=== PATIENT | female | born 1970 | race Caucasian/White ===

== ENCOUNTER → 2018-09-08 | Outpatient (CLI) | payer BC ==
[~2018-09-08] MED LIST: CATHETER FLUSH 10 ML SYR IV PRN; HOLD METFORMIN - RECEIVED CONTRAST 20 ML VIAL IV SCH; IOHEXOL 350 MG/ML 100 ML (OMNIPAQUE 350) VIAL IV ONE; NS 100 ML (IVPB) BAG IV ONE
--- NOTE | 2018-09-08 16:34 | Diagnostic Imaging Report ---
PROCEDURE: CT abdomen and pelvis with contrast. TECHNIQUE: Multiple contiguous axial images were obtained through the abdomen and pelvis after administration of intravenous contrast. Auto Exposure Controls were utilized during the CT exam to meet ALARA standards for radiation dose reduction. INDICATION: Right lower quadrant abdominal pain. FINDINGS: There is an approximately 0.8 cm in diameter nodule seen within the posterior left lower lobe. This is subpleural in location and is nonspecific. Low density is seen in the liver; however, there is no evidence of focal hepatic or splenic abnormality identified. There appears to be a small hiatal hernia. Gallbladder is contracted. There is no evidence of pancreatic, adrenal gland, or renal abnormality. No free fluid is seen within the abdomen or pelvis. The appendix has a normal appearance. There is no evidence of organized fluid collection to indicate abscess or hematoma. IMPRESSION: No definite acute abnormality is seen within the abdomen. In particular, there is no evidence of acute appendicitis. There is an approximately 0.8 cm subpleural nodule in the left lower lobe. This could be related to focal infiltrate. CT followup of the chest in 1-2 months would be useful to document stability or resolution of this finding as well as assess the remainder of the lung schwartz. Dictated by: Dictated on workstation # [id number]
== END ==
LOC: RAD 15:38
PROVIDERS: ATTEND Nurse Practitioner Family
DX: R10.31 Right lower quadrant pain (principal); R91.1 Solitary pulmonary nodule
CPT/HCPCS: 74177

== ENCOUNTER → 2018-09-16 | Outpatient (CLI) | payer BC ==
--- NOTE | 2018-09-16 08:51 | Diagnostic Imaging Report ---
PROCEDURE: US Gallbladder. TECHNIQUE: Multiple real-time grayscale images were obtained over the right upper quadrant in various projections. INDICATION: Right upper quadrant pain. The liver is normal in size at 14.5 cm. Liver is somewhat heterogeneous, likely owing to geographic fatty infiltration. No discrete liver mass is identified. Portal vein is patent and shows normal direction of flow. Gallbladder is without stones. There may be minimal sludge present. No wall thickening or biliary ductal dilatation is seen. The pancreas is obscured by bowel gas. Right kidney is unremarkable. No calculi or hydronephrosis is seen. There is no ascites. Impression: 1. Probable hepatic steatosis. 2. Minimal gallbladder sludge. No cholelithiasis or acute cholecystitis is detected. Dictated by: Dictated on workstation # [id number]
== END ==
LOC: RAD 07:46
PROVIDERS: ATTEND Nurse Practitioner Primary Care
DX: R10.11 Right upper quadrant pain (principal)
CPT/HCPCS: 76705

== ENCOUNTER → 2018-10-13 | Outpatient (CLI) | payer BC ==
[~2018-10-13] MED LIST changes: -HOLD METFORMIN - RECEIVED CONTRAST 20 ML VIAL IV SCH; -IOHEXOL 350 MG/ML 100 ML (OMNIPAQUE 350) VIAL IV ONE; -NS 100 ML (IVPB) BAG IV ONE
--- NOTE | 2018-10-13 14:27 | Diagnostic Imaging Report ---
CLINICAL INDICATION: Patient with right upper quadrant pain. COMPARISON: Right upper quadrant ultrasound dated 09/16/2018. PROCEDURE: The patient was administered 5.7 millicuries of technetium 99m Choletec. After 60 minutes of the images, one can of Ensure was drink followed by another 60 minutes of imaging. A nuclear medicine hepatobiliary scan with ejection fraction was performed. FINDINGS: There is prompt uptake and excretion of radiotracer by the liver. Activity is visible in the gallbladder by 20 minutes and the small bowel by 15 minutes. Ejection fraction of the gallbladder is calculated at 25% (normal >33%). The gallbladder visibly empties on the scans following the ingestion of Ensure. IMPRESSION: Abnormal hepatobiliary scan with low gallbladder ejection fraction of 25%. Considerations include gallbladder dysmotility or chronic cholecystitis. Dictated by: Dictated on workstation # [id number]
== END ==
LOC: CARD 11:42
PROVIDERS: ATTEND Nurse Practitioner Family
DX: R10.11 Right upper quadrant pain (principal)
CPT/HCPCS: 78227

== ENCOUNTER 2019-05-22 08:08 | Outpatient (RCR) | payer BC | END 2019-08-20 | disposition home or self-care (01) | LOC: CARD 08:08 | PROVIDERS: ATTEND Nurse Practitioner Family | DX: R00.2 Palpitations (principal) | CPT/HCPCS: 93225; 93226 ==

== ENCOUNTER → 2019-09-13 | Outpatient (CLI) | payer BC ==
[2019-09-13 15:06] VITALS: BP 137/68
--- NOTE | 2019-09-13 15:06 | Cardiology Stress Test Report ---
Stress Test Report Date of Procedure/Referring: Date of Procedure: September 13, 2019 Physician/Services Referral: IFTO Brewer PCP Dyana Nichole Admitting Physician Ephraim Arzate Indications: Palpitation Baseline Heart Rate: 85 Baseline Blood Pressure: Blood Pressure Systolic: 137 Blood Pressure Diastolic: 68 Baseline EKG: Baseline EKG: Normal sinus rhythm Summary/Conclusion: Summary: In summary, the patient started exercising with a baseline heart rate, blood pressure and EKG mentioned above Patient was able to exercise for a total of 8 minutes on Shamir protocol, 9.7 METs Maximum heart rate 166 Maximum blood pressure 267/57 Stress EKG Minimal nondiagnostic changes Recovery EKG Return to baseline Conclusion: 1. Good exercise tolerance for a total of 8 minutes on Shamir protocol, 9.7 METs, achieving 95 percent of maximum expected heart rate 2. Minimal nondiagnostic EKG changes with exercise returned to baseline during recovery 3. No arrhythmia was noted NIRMAL STEVENS MD September 13, 2019 15:06
== END ==
LOC: CARD 12:23
PROVIDERS: ATTEND Physician Assistant
DX: R00.2 Palpitations (principal); R06.09 Other forms of dyspnea
CPT/HCPCS: 93017; 93306

== ENCOUNTER 2021-03-28 11:20 | Outpatient (CLI) | payer BC ==
[2021-03-28 12:10] VITALS: BP 119/75
[2021-03-28 14:11] VITALS: BP 113/68
[2021-03-28 15:21] VITALS: BP 119/66
== END 2021-03-28 12:00 | disposition still patient (30) ==
LOC: INFUSION 11:20
PROVIDERS: ATTEND Physician Assistant
DX: U07.1 COVID-19 (principal)

== ENCOUNTER 2021-03-28 11:50 | Emergency (ER) | payer BC ==
[~2021-03-28] VITALS: Ht 167 cm; Wt 80.0 kg
--- NOTE | 2021-03-28 12:43 | ED Syncope ---
General Chief Complaint: Neurological Problems Stated Complaint: SEIZURE Nursing Triage Note: THE PT CAME OVER FROM THE INFUSION DPT. PER NURSING STATED THAT THE PT HAD A SEIZURE TYPE EVENT WHILE STARTING HER IV. THE PT HAS NO HX OF SEIZURES. THE PT IS W/D PINK. NO DISTRESS IS SEEN ON ARRIVAL. THE PT IS VIRBLEY RESPONSIVE. Source of Information: Patient Exam Limitations: No Limitations History of Present Illness Date Seen by Provider: Mar 28, 2021 Time Seen by Provider: 12:25 Initial Comments Patient is a 50-year-old female who presents to the emergency department today with a chief complaint of reported syncope. Patient states "the last thing I remember is her putting the needle in my arm and stating I think I am going to pass out". Patient is Covid positive, diagnosed about 10 days ago at her school. She states "I do not feel good". Reportedly the patient had some shaking with her syncopal episode. She states she has had previous syncopal episode many years ago. She does take antidepressants as well as metoprolol for rapid heartbeat. She complains of headache, nausea and diarrhea. She has been taking medications for her symptoms. No chest pain, no abdominal pain. No swelling in her legs. Is awake alert and oriented on my evaluation. All other review of systems reviewed and negative except as stated. Timing/Prior Episodes: Remote History Symptoms Prior to Episode: Lightheadedness, Nausea Precipitating Factors: Sitting Loss of Consciousness: Brief (Seconds) Current Symptoms: Back to Normal (just feels "sick") Allergies and Home Medications Allergies Coded Allergies: levofloxacin (Verified Allergy, Intermediate, Rash, 03/28/21) sulfamethoxazole (Verified Allergy, Intermediate, Rash, 03/28/21) trimethoprim (Verified Allergy, Intermediate, Rash, 03/28/21) Patient Home Medication List Home Medication List Reviewed: Yes Review of Systems Constitutional: see HPI EENTM: no symptoms reported Respiratory: no symptoms reported Cardiovascular: no symptoms reported Gastrointestinal: diarrhea, nausea Genitourinary: no symptoms reported Musculoskeletal: muscle cramps Skin: no symptoms reported Psychiatric/Neurological: Other (syncope) All Other Systems Reviewed Negative Unless Noted: Yes Physical Exam Vital Signs Vital Signs - First Documented 03/28/21 12:06 Temp 37.3 Pulse 77 Resp 16 B/P (MAP) 113/70 (84) Capillary Refill : Less Than 3 Seconds Height, Weight, BMI Height: '" Weight: lbs. oz. kg; 28.00 BMI Method: General Appearance: No Apparent Distress, WD/WN HEENT: PERRL/EOMI, Other (dry oral mucosa) Neck: Normal Inspection Cardiovascular: Regular Rate, Rhythm, Normal Peripheral Pulses Respiratory: Lungs Clear, Normal Breath Sounds, No Accessory Muscle Use, No Respiratory Distress Gastrointestinal: Normal Bowel Sounds, Non Tender, Soft Extremities: Normal Inspection, Normal Range of Motion, No Calf Tenderness, No Pedal Edema Neurologic/Psychiatric: Alert, Oriented x3, No Motor/Sensory Deficits, Normal Mood/Affect, research microbiologist II-XII Norm as Tested Cranial Nerves: Normal Hearing, Normal Speech, PERRL Motor/Sensory: No Motor Deficit, No Sensory Deficit Skin: Normal Color, Warm/Dry Progress/Results/Core Measures Results/Orders Lab Results Laboratory Tests Test 03/28/21 12:00 03/28/21 13:01 Range/Units White Blood Count 6.4 4.3-11.0 10^3/uL Red Blood Count 5.74 H 3.80-5.11 10^6/uL Hemoglobin 13.1 11.5-16.0 g/dL Hematocrit 43 35-52 % Mean Corpuscular Volume 74 L 80-99 fL Mean Corpuscular Hemoglobin 23 L 25-34 pg Mean Corpuscular Hemoglobin Concent 31 L 32-36 g/dL Red Cell Distribution Width 16.4 H 10.0-14.5 % Platelet Count 204 130-400 10^3/uL Mean Platelet Volume 9.4 9.0-12.2 fL Immature Granulocyte % (Auto) 0 % Neutrophils (%) (Auto) 66 42-75 % Lymphocytes (%) (Auto) 28 12-44 % Monocytes (%) (Auto) 5 0-12 % Eosinophils (%) (Auto) 0 0-10 % Basophils (%) (Auto) 0 0-10 % Neutrophils # (Auto) 4.3 1.8-7.8 10^3/uL Lymphocytes # (Auto) 1.8 1.0-4.0 10^3/uL Monocytes # (Auto) 0.3 0.0-1.0 10^3/uL Eosinophils # (Auto) 0.0 0.0-0.3 10^3/uL Basophils # (Auto) 0.0 0.0-0.1 10^3/uL Immature Granulocyte # (Auto) 0.0 0.0-0.1 10^3/uL Sodium Level 136 135-145 MMOL/L Potassium Level 3.7 3.6-5.0 MMOL/L Chloride Level 102 98-107 MMOL/L Carbon Dioxide Level 21 21-32 MMOL/L Anion Gap 13 5-14 MMOL/L Blood Urea Nitrogen 10 7-18 MG/DL Creatinine 0.87 0.60-1.30 MG/DL Estimat Glomerular Filtration Rate 69 BUN/Creatinine Ratio 11 Glucose Level 108 H 70-105 MG/DL Calcium Level 8.6 8.5-10.1 MG/DL Serum Test, Qualitative NEGATIVE NEGATIVE My Orders Orders - AMY CHRISTINE MD Ns Iv 1000 Ml (Sodium Chloride 0.9%) (03/28/21 12:45) Cbc With Automated Diff (03/28/21 12:39) Basic Metabolic Panel (03/28/21 12:39) Chest 1 View, Ap/Pa Only (03/28/21 12:39) Ekg Tracing (03/28/21 12:39) Hcg,Qualitative Serum (03/28/21 12:39) Vital Signs/I&O 03/28/21 12:06 Temp 37.3 Pulse 77 Resp 16 B/P (MAP) 113/70 (84) Blood Pressure Mean: 84 Progress Progress Note : Time: 13:48 Progress Note Patient's labs reviewed, within normal limits. Chest x-ray is clear. Patient's vital signs have been stable. She is treated in the emergency department with a liter of IV fluids and states that she feels better at the time of discharge. Return precautions have been given. The patient verbalized understanding and would like to go over to the infusion center to get her Regeneron. This is been coordinated with the infusion center. All questions are sought and answered. Initial ECG Impression Date: Mar 28, 2021 Initial ECG Impression Time: 13:05 Initial ECG Rate: 79 Initial ECG Rhythm: Normal Sinus Initial ECG Intervals: Normal Initial ECG Impression: Nonspecific Changes Diagnostic Imaging Diagonstic Imaging: Xray Plain Films/CT/US/NM/MRI: chest Comments [facility], [place] NAME: HILDA JUAREZ [facility] REC#: [id number] PT STATUS: REG ER : 1970 PHYSICIAN: AMY CHRISTINE MD ADMIT DATE: 03/28/21/ER Draft Date of Exam:03/28/21 CHEST 1 VIEW, AP/PA ONLY INDICATION: Syncope Single AP view of chest is obtained. COMPARISON: No previous study is available for comparison at this time. FINDINGS: Heart size and pulmonary vasculature are within normal limits, and the lungs are clear, bilaterally. IMPRESSION: Unremarkable chest. Dictated on workstation # [id number] Dict: 03/28/21 1256 Trans: 03/28/21 1258 CVB [id number] Interpreted by: OMI SUTHERLAND MD Electronically signed by: Departure Impression Primary Impression: Vaso vagal episode Additional Impression: COVID-19 Disposition: 01 HOME, SELF-CARE Condition: Stable Departure-Patient Inst. Decision time for Depature: 13:47 Referrals: JACKI BAKER (PCP/Family) Primary Care Physician Patient Instructions: COVID-19 (DC), Vasovagal Response Add. Discharge Instructions: Go directly to the infusion center to get your monoclonal antibody infusion. Drink plenty of fluids to stay well-hydrated. Alternate Tylenol and ibuprofen as needed for body aches and any fever over 100.4. Be sure and follow-up with your primary care physician. Return to the emergency room for any worsening symptoms especially shortness of breath, worsening cough, fever that does not respond to Tylenol and ibuprofen or any other emergent concerning symptoms. AMY CHRISTINE MD Mar 28, 2021 12:43
[2021-03-28] MEDS ORDERED: NS IV 1000 ML 1,000 ML IV SCH (12:45)
[2021-03-28 12:51] LABS: BASOPHILS % (AUTO) 0 % (0-10); EOSINOPHILS % (AUTO) 0 % (0-10); HEMATOCRIT 43 % (35-52); HEMOGLOBIN 13.1 g/dL (11.5-16.0); LYMPHOCYTES # (AUTO) 1.8 10^3/uL (1.0-4.0); LYMPHOCYTES % (AUTO) 28 % (12-44); MEAN CORPUSCULAR HEMOGLOBIN 23 pg (25-34); MEAN CORPUSCULAR HGB CONC 31 g/dL (32-36); MEAN CORPUSCULAR VOLUME 74 fL (80-99); MEAN PLATELET VOLUME 9.4 fL (9.0-12.2); MONOCYTES # (AUTO) 0.3 10^3/uL (0.0-1.0); MONOCYTES % (AUTO) 5 % (0-12); NEUTROPHILS # (AUTO) 4.3 10^3/uL (1.8-7.8); NEUTROPHILS % (AUTO) 66 % (42-75); PLATELET COUNT 204 10^3/uL (130-400); WHITE BLOOD COUNT 6.4 10^3/uL (4.3-11.0)
[2021-03-28 12:54] LABS: POTASSIUM 3.7 MMOL/L (3.6-5.0)
[2021-03-28 12:55] LABS: CALCIUM 8.6 MG/DL (8.5-10.1)
--- NOTE | 2021-03-28 12:58 | Diagnostic Imaging Report ---
INDICATION: Syncope Single AP view of chest is obtained. COMPARISON: No previous study is available for comparison at this time. FINDINGS: Heart size and pulmonary vasculature are within normal limits, and the lungs are clear, bilaterally. IMPRESSION: Unremarkable chest. Dictated by: Dictated on workstation # [id number]
[2021-03-28 12:59] LABS: CREATININE SERUM 0.87 MG/DL (0.60-1.30)
[2021-03-28 13:59] VITALS: BP 110/68
[2021-03-28] MEDS ORDERED: BAMLANIVIMAB 700 MG/ETESEVIMAB 1,400 MG IN NS IV ONE ×3 (14:00)
[2021-03-28] MEDS ORDERED: EPINEPHrine INJECTION 1 MG/ML AMP IM PRN (14:00)
[2021-03-28] MEDS ORDERED: ACETAMINOPHEN 500 MG TAB (TYLENOL) PO PRN (14:00)
[2021-03-28] MEDS ORDERED: diphenhydrAMINE 50 MG/ML INJ (BENADRYL) IV PRN (14:00)
[2021-03-28] MEDS ORDERED: ONDANSETRON 4 MG/2 ML (SDV) Z0FRAN IV PRN (14:00)
== END 2021-03-28 14:12 | disposition home or self-care (01) ==
LOC: EDUNIT# 11:50 → ER 11:51
DX: U07.1 COVID-19 (principal); R55 Syncope and collapse
CPT/HCPCS: 36415; 71045; 80048; 84703; 85025; 93005

== ENCOUNTER 2023-02-05 07:28 | Outpatient (CLI) | payer BC | END 2023-02-05 08:20 | LOC: SLEEP 07:28 | PROVIDERS: ATTEND Internal Medicine Critical Care Medicine | DX: G47.33 Obstructive sleep apnea (adult) (pediatric) (principal); G47.36 Sleep related hypoventilation in conditions classified elsewhere | CPT/HCPCS: G0399 ==